=== PATIENT | female | born 1970 | race Caucasian/White ===

== ENCOUNTER 2017-09-08 18:48 | Emergency (ER) | payer OTHER, MEDICAID ==
[2017-09-08 19:33] VITALS: BP 103/72
--- NOTE | 2017-09-08 19:44 | ED ---
Upper Extremity Pain - HPI Summary HPI Summary: 47 yr old female with the complaint of right distal radius pain and right hand pain. Onset of symptoms was Friday when she fell down some stairs. She landed injured her right hand breaking fall. no LOC. No neck pain, no chest or abdominal pain. No other complaints. - History of Current Complaint Chief Complaint: UCUpperExtremity Stated Complaint: RIGHT WRIST INJURY Time Seen by Provider: 09/08/17 19:26 Hx Last Menstrual Period: Three Months Ago - Perimenopausal - Allergies/Home Medications Allergies/Adverse Reactions: Allergies Allergy/AdvReac Type Severity Reaction Status Date / Time amoxicillin Allergy Rash Verified 09/08/17 19:34 cephalexin [From Keflex] Allergy Rash, Verified 09/08/17 19:36 diarrhea diazepam Allergy Shakes Verified 09/08/17 19:36 nitroglycerin Allergy Unknown Verified 09/08/17 19:36 Reaction Details Home Medications: Home Medications Aspirin [Aspir-Low] 81 mg PO QAM 09/08/17 [History Confirmed 09/08/17] Calcium Carbonate [Calcium] 600 mg PO BEDTIME 09/08/17 [History Confirmed ] Gabapentin 1,200 mg PO TID 09/08/17 [History Confirmed 09/08/17] Insulin Starts With 'B..' 70 units SUBCUT BEDTIME 09/08/17 [History Confirmed ] Magnesium Oxide [Magnesium] 500 mg PO DAILY PRN 09/08/17 [History Confirmed 07/23] Multivitamin [Daily Multiple Vitamins] 1 tab PO DAILY 09/08/17 [History Confirmed 09/08/17] Rosuvastatin Calcium 1 dose PO BEDTIME 09/08/17 [History Confirmed 09/08/17] PMH/Surg Hx/FS Hx/Imm Hx Endocrine/Hematology History: Reports: Hx Diabetes - insulin - Surgical History Surgery Procedure, Year, and Place: Left Knee Meniscus Repairs, gallbladder removal, , tubal ligation; b/lcataracts Infectious Disease History: No Infectious Disease History: Denies: Traveled Outside the [place] in Last 30 Days - Family History Known Family History: Positive: Diabetes Negative: Cardiac Disease, Hypertension - Social History Alcohol Use: None Substance Use Type: Reports: None Smoking Status (MU): Heavy Every Day Tobacco Smoker Type: Cigarettes Amount Used/How Often: 1 ppd Length of Time of Smoking/Using Tobacco: since age 15 Have You Smoked in the Last Year: Yes Review of Systems Constitutional: Negative Positive: Other - right hand and wrist pain All Other Systems Reviewed And Are Negative: Yes Physical Exam Triage Information Reviewed: Yes Vital Signs On Initial Exam: Initial Vitals Temp Pulse Resp BP Pulse Ox 98.4 F 79 22 103/72 99 09/08/17 19:19 09/08/17 19:19 09/08/17 19:19 09/08/17 19:19 09/08/17 19:19 Vital Signs Reviewed: Yes Appearance: Positive: Well-Appearing, No Pain Distress Skin: Positive: Warm, Skin Color Reflects Adequate Perfusion Head/Face: Positive: Normal Head/Face Inspection Eyes: Positive: EOMI ENT: Positive: Normal ENT inspection Neck: Positive: Nontender Respiratory/Lung Sounds: Positive: Clear to Auscultation, Breath Sounds Present Cardiovascular: Positive: RRR, Pulses are Symmetrical in both Upper and Lower Extremities Abdomen Description: Positive: Nontender Musculoskeletal: Positive: Other - mild tender over the distal right radius, and over 1st metacarpal right hand. No snuff box tenderness. Neurological: Positive: Sensory/Motor Intact, Alert, Oriented to Person Place, Time, CN Intact II-III Psychiatric: Positive: Normal - Radha Coma Scale Best Eye Response: 4 - Spontaneous Best Motor Response: 6 - Obeys Commands Best Verbal Response: 5 - Oriented Coma Scale Total: 15 Diagnostics - Vital Signs Vital Signs Temp Pulse Resp BP Pulse Ox 09/08/17 19:19 98.4 F 79 22 103/72 99 - Laboratory Lab Statement: Any lab studies that have been ordered have been reviewed, and results considered in the medical decision making process. - Radiology right hand and wrist Xray Interpretation: No Acute Changes Radiology Interpretation Completed By: Radiologist Course/Dx - Course Course Of Treatment: 47 yr old with right hand and wrist contusion. Plan dc home. FU with pmd - Diagnoses Provider Diagnoses: Contusion of hand, right, Contusion of wrist, right Discharge - Sign-Out/Discharge Documenting (check all that apply): Discharge/Admit/Transfer - Discharge Plan Condition: Good Disposition: HOME Patient Education Materials: Contusion in Adults (ED) Referrals: Shereen Pappas MD [Primary Care Provider] - 2 Days - Billing Disposition and Condition Condition: GOOD Disposition: Home
--- NOTE | 2017-09-08 20:11 | RAD ---
Indication: Right hand pain. 4 views of the right hand are reviewed. No definite fracture is noted although the proximal phalanges of the second through fourth digits are obscured by jewelry. IMPRESSION: No definite fracture is noted.
--- NOTE | 2017-09-08 20:12 | RAD ---
Indication: Right wrist pain 3 views of the wrist demonstrates no fracture. No other bone or joint abnormality is identified. IMPRESSION: NO FRACTURE OF THE WRIST IS NOTED.
== END 2017-09-08 20:27 | disposition home or self-care (01) ==
LOC: UCCORT 18:48
DX: S60.211A Contusion of right wrist, initial encounter (principal); W10.8XXA Fall (on) (from) other stairs and steps, initial encounter; Y93.9 Activity, unspecified; Y99.9 Unspecified external cause status; F17.210 Nicotine dependence, cigarettes, uncomplicated; Z88.1 Allergy status to other antibiotic agents; Z88.8 Allergy status to other drugs, medicaments and biological substances
CPT/HCPCS: 99211; G0463

== ENCOUNTER 2019-04-30 10:03 | Emergency (ER) | payer OTHER ==
[2019-04-30 10:55] VITALS: BP 95/63
--- NOTE | 2019-04-30 10:56 | UC ---
Lower Extremity/Ankle HPI - HPI Summary HPI Summary: Patient is a 49-year-old female presents to urgent care for evaluation of right ankle. Patient states last night she tripped over a towel inverting her right ankle. Patient with pain diffusely around the ankle on the dorsum of the foot. Patient took Tylenol at 8:30 this morning. Patient applied ice last night but nothing today. Patient with a history of remote sprain this ankle. Patient without any open wounds. Patient with mild edema and ecchymosis. Patient's medications with improvement in the EMR by the triage at this visit. - History of Current Complaint Chief Complaint: UCLowerExtremity Stated Complaint: RIGHT ANKLE INJURY Time Seen by Provider: 04/30/19 10:56 Hx Last Menstrual Period: Three Months Ago - Perimenopausal Onset/Duration: Sudden Onset Severity Initially: Moderate Severity Currently: Severe Pain Intensity: 10 - Allergies/Home Medications Allergies/Adverse Reactions: Allergies Allergy/AdvReac Type Severity Reaction Status Date / Time amoxicillin Allergy Rash Verified 04/30/19 10:49 cephalexin [From Keflex] Allergy Rash, Verified 04/30/19 10:49 diarrhea diazepam Allergy Shakes Verified 04/30/19 10:49 nitroglycerin Allergy Unknown Verified 04/30/19 10:49 Reaction Details sulfamethoxazole AdvReac GI Verified 04/30/19 10:49 [From Bactrim] trimethoprim [From Bactrim] AdvReac GI Verified 04/30/19 10:49 Home Medications: Home Medications Acetaminophen [Tylenol Extra Strength] 1,500 mg PO ONCE PRN 04/30/19 [History Confirmed 04/30/19] Rivaroxaban TAB(*) [Xarelto 20 mg] 20 mg PO DAILY 04/30/19 [History Confirmed ] PMH/Surg Hx/FS Hx/Imm Hx Previously Healthy: No - dvt Cardiovascular History: Hypertension - Surgical History Surgical History: Yes Surgery Procedure, Year, and Place: Left Knee Meniscus Repairs, gallbladder removal, , tubal ligation; b/l cataracts - Family History Known Family History: Positive: Diabetes, Non-Contributory Negative: Cardiac Disease, Hypertension - Social History Occupation: Disabled Lives: With Family Alcohol Use: None Substance Use Type: None Smoking Status (MU): Heavy Every Day Tobacco Smoker Type: Cigarettes Amount Used/How Often: 1 ppd Length of Time of Smoking/Using Tobacco: since age 15 Have You Smoked in the Last Year: Yes Household Exposure Type: Cigarettes Review of Systems All Other Systems Reviewed And Are Negative: No Musculoskeletal: Positive: Other: - right ankle Physical Exam - Summary Physical Exam Summary: Vital Signs Reviewed: Yes A+Ox3, no distress Eyes: Conjunctiva Clear ENT: Hearing grossly normal neck: supple Respiratory: Positive: No respiratory distress, No accessory muscle use Cardiovascular: skin color reflect adequate perfusion 2+ DP, PT CBT < 2 sec Musculoskeletal Exam: + SLE + flex/ext knee, ankle with pain + TTP diffusely ankle - bilateral malleolo Pt with pain dorsum midfoot. no crepitus Neurological: Positive: Alert, ambulatory without difficulty Psychological: Positive: Normal Response To examiner Skin: Positive: no rash, no ecchymosis, mild edema Triage Information Reviewed: Yes Vital Signs: Initial Vital Signs Temp 97.7 F 04/30/19 10:51 Pulse 84 04/30/19 10:51 Resp 15 04/30/19 10:51 BP 95/63 04/30/19 10:51 Pulse Ox 98 04/30/19 10:51 Diagnostics - Radiology No standard instances Radiology Interpretation Completed By: Radiologist - Patient Name: DESTINY GONZALEZ Medical Record#: [id number] Ordering Physician: Shantel Parada MD Acct.#: [id number] : 1970 Age: 49 Sex: F Location: [facility] Exam Date: 04/30/19 1101 ADM Status: REG ER Order Information: FOOT RIGHT 3+ VWS Accession Number: [id number] CPT: 01073 Indication: Foot and ankle pain. 3 views of the right foot demonstrates osteopenia. Again noted is avulsion fracture off the anterior distal dorsal talus. No other fractures are noted. IMPRESSION: Avulsion fracture off the anterior distal dorsal talus. <Electronically signed by Azeb Perera MD in OV> 04/30/19 1126 Dictated By: Azeb Perera MD Dictated Date/Time: 01/24/20 1125 Transcribed Date/Time: 04/30/191124 Copy to: CC:Shereen Alexis [employer]; Shantel Parada MD Imaging - [facility] Imaging - [facility] Imaging - [facility] [id number] [place] [id number] [place] [id number] ph ([phone]) ph ([phone]) ph ([phone]) This report is only to be considered final once signed by the Provider(s) as displayed in the "< Electronically Signed by >" field (s). Absence of a signature indicates the report is in a draft status and still needs to be finalized. In the event this document was created by someone other than the signing Provider, the individual initiating the document will be listed in the "Entered by:" or "Dictated by:" kaplan. of Re-Evaluation - Re-Evaluation First Eval Comment: pt with avulsion chip fractureof talus. will place in CAM boot. crutches. f/u with ortho. ice. elevate Lower Extremity Course/Dx - Course Course Of Treatment: Patient presents urgent care for evaluation of pain in her right foot and ankle after she inverted it last evening. Patient took Tylenol hours ago. Patient apply ice last night. On exam vital signs are stable. Patient with tenderness diffusely around the wrist ankle as well as the dorsum of the foot. No open wounds. We'll check imaging studies. If negative Rao wrap, air splint, crutches. Ice. Tylenol. Follow-up with PCP. Patient comfortable in agreement with plan. - Differential Dx/Diagnosis Provider Diagnosis: Avulsion fracture of talus Discharge ED - Sign-Out/Discharge Documenting (check all that apply): Patient Departure All imaging exams completed and their final reports reviewed: Yes - Discharge Plan Condition: Stable Disposition: HOME Patient Education Materials: Avulsion Fracture (ED) Referrals: Shereen Alexis NP [Primary Care Provider] - Pravin Martinez MD [Medical Doctor] - Additional Instructions: - wear walking support boot until you are evaluated by orthopedic provider -apply ice (20 min at a time) every 2-3 hours for the next 2 days -use crutches until you can walk normally without a limp -Elevate your leg - this will help with swelling and pain - Okay to take Tylenol every 6 hours for pain. Take with food. Do NOT take for more than 4-5 days -Contact the orthopedic today to arrange a follow-up appointment. Contact your doctor or return with questions or concerns - Billing Disposition and Condition Condition: STABLE Disposition: Home
== END 2019-04-30 12:04 | disposition home or self-care (01) ==
LOC: UCCORT 10:03
DX: S92.151A Displaced avulsion fracture (chip fracture) of right talus, initial encounter for closed fracture (principal); I10 Essential (primary) hypertension; F17.210 Nicotine dependence, cigarettes, uncomplicated; Z88.0 Allergy status to penicillin; Z88.1 Allergy status to other antibiotic agents; Z88.8 Allergy status to other drugs, medicaments and biological substances; X50.0XXA Overexertion from strenuous movement or load, initial encounter; W18.40XA Slipping, tripping and stumbling without falling, unspecified, initial encounter; Y92.9 Unspecified place or not applicable
CPT/HCPCS: 99213; G0463

== ENCOUNTER 2019-06-11 14:51 | Emergency (ER) | payer OTHER | END 2019-06-11 15:06 | disposition left against medical advice (07) | LOC: UCCORT 14:51 | DX: Z53.21 Procedure and treatment not carried out due to patient leaving prior to being seen by health care provider (principal) ==